=== PATIENT | male | born 1965 | race African-American/Black ===

== ENCOUNTER 2022-11-14 09:58 | Emergency (ER) | payer OTHER, SELFPAY ==
--- NOTE | ~2022-11-14 | XR_ITS ---
EXAMINATION: XR lumbar spine 2-3V DATE: 11/14/2022 10:53 INDICATION: Low back pain. TECHNIQUE: 3 views of lumbar spine were obtained. COMPARISON: None. FINDINGS: There is 5 degrees levocurvature of lumbar spine. Vertebral body heights are normal. There is mildly decreased disc height at L3-L4. There are endplate osteophytes at most levels. There is mul tilevel severe facet joint osteoarthritis. There is a total left hip arthroplasty. IMPRESSION: 1. Mild lumbar spondylosis. Reviewed, dictated and finalized at location A. IMPRESSION: 1. Mild lumbar spondylosis.
--- NOTE | ~2022-11-14 | XR_ITS ---
EXAMINATION: XR hip LT min 3V w AP pelvis DATE: 11/14/2022 10:52 INDICATION: Left hip pain. TECHNIQUE: An anteroposterior view of the pelvis and 3 views of left hip were obtained. COMPARISON: None. FINDINGS: There is a total left hip arthroplasty in near-anatomic alignment. No periprosthetic lucenc y to suggest loosening or infection. No fracture. There is moderate right hip osteoarthritis. There i s mild lumbar spondylosis. IMPRESSION: 1. 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 2. Moderate right hip osteoarthritis. Reviewed, dictated and finalized at location A.
--- NOTE | 2022-11-14 10:29 | ED.LOWEXIN ---
HPI - Extremity Injury (Lower) General Chief Complaint: Extremity Injury, Lower Stated Complaint: hip pain Time Seen by Provider: 11/14/22 10:11 Source: patient Mode of arrival: ambulatory Limitations: no limitations History of Present Illness HPI Narrative: This is a 56-year-old male that presents to the emergency department for left hip pain ongoing since yesterday. Reports he tripped yesterday and had to catch himself with the left leg to not fall. Reports he has history of hip replacement on the left side. Since he has had left lateral and posterior hip pain. Reports the pain radiates into his left leg. He has been able to ambulate still, but with some pain. Denies saddle anesthesia, decreased range of motion, or weakness. Related Data Allergies Allergy/AdvReac Type Severity Reaction Status Date / Time Penicillins Allergy Hives Verified 11/14/22 11:02 Review of Systems Review of Systems: CONSTITUTIONAL: Denies fever SKIN: Denies rash MUSCULOSKELETAL: Reports back pain, joint pain, and myalgia. NEUROLOGIC: Denies numbness, or weakness. All systems reviewed & are unremarkable except as noted in HPI and below PMFSH Past Medical History Medical History (Updated 11/14/22 @ 11:55 by Kalyani Kim PA-C) History of hypertension Social History Social History (Updated 11/14/22 @ 10:33 by Kalyani Kim PA-C) Smoking status: Current every day smoker Exam Narrative: GENERAL: Well-appearing, well-nourished, and in no acute distress. HEAD: Normocephalic, atraumatic. EYES: EOMI. CHEST: Clear to auscultation. No respiratory distress. No wheezes rales or rhonchi HEART: Regular rate and rhythm. No murmur heard. Normal peripheral pulses. BACK: No midline spinal tenderness EXTREMITIES: Normal range of motion. No edema or obvious deformity. Strength equal in bilateral lower extremities (5/5). Normal DP pulses SKIN: Warm, dry, no rash. NEURO: No focal deficits. Alert and oriented x3. PSYCH: Normal mood and affect Course Course Emergency Course: Patient and family updated on work-up and agree with plan of care Vital Signs Vital signs: Vital Signs Temperature 97.9 F 11/14/22 10:59 Pulse Rate 73 11/14/22 10:59 Respiratory Rate 16 11/14/22 10:59 Blood Pressure 129/79 11/14/22 10:59 Pulse Oximetry 100 11/14/22 10:59 Oxygen Delivery Room Air 11/14/22 10:59 Temperature 97.9 F 11/14/22 10:59 Pulse Rate 73 11/14/22 10:59 Respiratory Rate 16 11/14/22 10:59 Blood Pressure 129/79 11/14/22 10:59 Pulse Oximetry 100 11/14/22 10:59 Oxygen Delivery Room Air 11/14/22 10:59 MDM - Extremity Injury (Lower) MDM Narrative Medical decision making narrative: Patient presents to the emergency department for left hip pain after tripping yesterday. Reports catching himself on his left leg before falling. He has pain in his left posterior hip/buttock that radiates down the leg. His symptoms are consistent with sciatica. He is afebrile and nontoxic-appearing. He is neurovascularly intact. Denies any saddle anesthesia or bowel/bladder incontinence. Left hip x-ray shows arthroplasty in near-anatomic alignment. Lumbar spine x-ray shows mild lumbar spondylosis. Patient and family updated on work-up and agree with further plan of care. He is to follow-up with primary care provider. He was given warnings to return to the ER Differential Diagnosis Differential diagnosis: Likely fracture of hip and other (hip dislocation, low back strain, sciatica) Imaging Data Radiologist's impression: ITS Impressions Hip/Pelvis X-Ray 11/14/22 11:00 IMPRESSION: 1. 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 2. Moderate right hip osteoarthritis. Lumbar Spine X-Ray 11/14/22 11:02 IMPRESSION: 1. Mild lumbar spondylosis. Critical Care Time Critical Care Time Critical Care Time: No Discharge Plan Discharge Clinical Impression: Sciatica Qualifiers: Laterali
[2022-11-14 10:59] VITALS: BP 129/79; PULSE 73; RESP 16; TEMP 36.6; O2SAT 100
[2022-11-14] MEDS: ACETAMINOPHEN 500 MG TABLET 1000 MG PO (11:03)
[2022-11-14 12:03] VITALS: BP 130/83; PULSE 76; RESP 18; O2SAT 96
== END 2022-11-14 12:04 | disposition home or self-care (01) ==
PROVIDERS: Emergency Provider Physician Assistant
DX: M54.32 Sciatica, left side (principal); I10 Essential (primary) hypertension; F17.200 Nicotine dependence, unspecified, uncomplicated; Z96.642 Presence of left artificial hip joint; M16.11 Unilateral primary osteoarthritis, right hip; M47.816 Spondylosis without myelopathy or radiculopathy, lumbar region
CPT/HCPCS: 72100; 73502; 99284; A9270